=== PATIENT | female | born 1960 | race Caucasian/White ===

== ENCOUNTER 2018-05-26 11:21 | Emergency (ER) | payer MEDICARE, MEDICAID ==
--- NOTE | 2018-05-26 12:48 | ER Document Report ---
ED Medical Screen (RME) - General Chief Complaint: Chest Pain Stated Complaint: LEFT KNEE PAIN Time Seen by Provider: 05/26/18 12:44 Mode of Arrival: Ambulatory Information source: Patient Notes: This is a 57-year-old female that was transferred over by ambulance from [facility] with concerns of EKG changes. She does have a history of a known left bundle branch block and a history of CHF. She denies having any chest pain or shortness of breath. She does report that she has had indigestion over the past several weeks (since starting Wellbutrin). She states that normally she has not had any indigestion since having a hiatal hernia repair several years ago. She also has a history of rheumatoid arthritis and lupus and is on methotrexate and frequently on short courses of prednisone. Finally, she does have a history of recurrent left knee pain associated with standing up on the job a lot. She has had injections of the left knee. So the patient presented to [facility] with left knee inflammation as well as indigestion. [facility] performed an EKG and compared it to an EKG from May 08 and transferred the patient because of changes. The EKGs show a left bundle branch block which is old. There are changes in leads V2 and V5 and it is quite possibly that these 2 leads were switched when the EKG was performed on May 08. The EKGs (2 of them) performed at [facility] today is the same as the EKG performed in the ER today. Given the issues surrounding the possibility of the changes, patient will be evaluated further in the back and we will get a set of cardiac enzymes. TRAVEL OUTSIDE OF THE [place] IN LAST 30 DAYS: No - Related Data Allergies/Adverse Reactions: No Known Allergies Allergy (Unverified 05/26/18 12:27) Past Medical History Renal/ Medical History: Denies: Hx Peritoneal Dialysis Psychiatric Medical History: Reports: Hx Depression - Immunizations Hx Diphtheria, Pertussis, Tetanus Vaccination: No Physical Exam - Vital signs Vitals: Temp Pulse Resp BP Pulse Ox 98.4 F 73 18 150/98 H 98 05/26/18 11:36 05/26/18 11:36 05/26/18 11:36 05/26/18 11:36 05/26/18 11:36 Course - Vital Signs Vital signs: Temp Pulse Resp BP Pulse Ox 98.4 F 73 18 150/98 H 98 05/26/18 11:36 05/26/18 11:36 05/26/18 11:36 05/26/18 11:36 05/26/18 11:36
[2018-05-26 13:12] LABS: ABSOLUTE EOSINOPHILS # (AUTO) 0.1 10^3/uL (0.0-0.6); ABSOLUTE LYMPHOCYTES (AUTO) 1.3 10^3/uL (0.5-4.7); ABSOLUTE MONOCYTES (AUTO) 0.3 10^3/uL (0.1-1.4); ABSOLUTE NEUT (AUTO) 3.1 10^3/uL (1.7-8.2); EOSINOPHILS % (AUTO) 2.3 % (0-6); HEMATOCRIT 40.4 % (36.0-47.0); HEMOGLOBIN 13.9 g/dL (12.0-15.5); LYMPHOCYTES % (AUTO) 26.2 % (13-45); MEAN CORPUSCULAR HEMOGLOBIN 32.6 pg (27.0-33.4); MEAN CORPUSCULAR HGB CONC 34.5 g/dL (32.0-36.0); MEAN CORPUSCULAR VOLUME 95 fl (80-97); MONOCYTES % (AUTO) 7.2 % (3-13); PLATELET COUNT 320 10^3/uL (150-450); RED BLOOD COUNT 4.27 10^6/uL (3.72-5.28); RED CELL DISTRIBUTION WIDTH 13.7 % (11.5-14.0); SEGMENTED NEUTROPHILS % (AUTO) 63.3 % (42-78); TOTAL CELLS COUNTED % (AUTO) 100 %; WHITE BLOOD COUNT 4.9 10^3/uL (4.0-10.5)
--- NOTE | 2018-05-26 13:26 | RADIOLOGY REPORT (SQ) ---
EXAM DESCRIPTION: KNEE LEFT 3 VIEWS COMPLETED DATE/TIME: 05/26/2018 1:13 pm REASON FOR STUDY: left knee pain COMPARISON: None. NUMBER OF VIEWS: Three views. TECHNIQUE: AP, lateral, and sunrise patella radiographic images acquired of the left knee. LIMITATIONS: None. FINDINGS: MINERALIZATION: Juxta-articular osteopenia BONES: No acute fracture or dislocation. No worrisome bone lesions. JOINT: No effusion. SOFT TISSUES: No soft tissue swelling. No radio-opaque foreign body. OTHER: No other significant finding. IMPRESSION: NEGATIVE STUDY OF THE LEFT KNEE. NO RADIOGRAPHIC EVIDENCE OF ACUTE INJURY. TECHNICAL DOCUMENTATION: JOB ID: [id number] [employer]- All Rights Reserved Reading location - IP/workstation name: [email or web address]
[2018-05-26 13:38] LABS: ALANINE AMINOTRANSFERASE 26 U/L (9-52); ALBUMIN 4.3 g/dL (3.5-5.0); ALKALINE PHOSPHATASE 101 U/L (38-126); ANION GAP 11 (5-19); ASPARTATE AMINO TRANSFERASE 24 U/L (14-36); BILIRUBIN,DIRECT 0.2 mg/dL (0.0-0.4); BILIRUBIN,TOTAL 0.5 mg/dL (0.2-1.3); BLOOD UREA NITROGEN 15 mg/dL (7-20); CALCIUM 9.7 mg/dL (8.4-10.2); CARBON DIOXIDE 29 mmol/L (22-30); CHLORIDE 106 mmol/L (98-107); CREATINE KINASE 51 U/L (30-135); GLUCOSE 97 mg/dL (75-110); POTASSIUM 4.4 mmol/L (3.6-5.0); SODIUM 146.2 mmol/L (137-145); TOTAL PROTEIN 7.6 g/dL (6.3-8.2)
[2018-05-26 13:50] LABS: CREATINE KINASE MB 0.52 ng/mL (<4.55)
[2018-05-26 13:51] LABS: TROPONIN I < 0.012 ng/mL
--- NOTE | 2018-05-26 14:58 | ER Document Report ---
ED General - General Mode of Arrival: Ambulatory Information source: Patient TRAVEL OUTSIDE OF THE [place] IN LAST 30 DAYS: No <HARSH LOYD - Last Filed: 05/26/18 15:38> <DAQUAN SIMON - Last Filed: 05/26/18 21:50> - General Chief Complaint: Chest Pain Stated Complaint: LEFT KNEE PAIN Time Seen by Provider: 05/26/18 12:44 Notes: Patient is a 57 year old female with arthritis and lupus and a history of OR presents to the emergency department complaining of left knee pain and indigestion. Patient initially presented to [facility] with the same complaints and was sent to the emergency department for EKG changes. While in triage, another EKG was performed which looks the same as the 2 EKGs performed at [facility]. Patient states she is most concerned about her left knee pain. She states she works everyday where she is standing most of the day further stating her knee pain is exacerbated after working. She states she has attempted to wear a knee brace after she gets off of work and place gel inserts in her shoes to alleviate her pain. She reports taking Prednisone and Flexeril as needed and already having an orthopedist in relation to bilateral shoulder partial replacements. (HARSH LOYD) - Related Data Allergies/Adverse Reactions: No Known Allergies Allergy (Unverified 05/26/18 12:27) Past Medical History - General Information source: Patient - Social History Smoking Status: Former Smoker Cigarette use (# per day): No Chew tobacco use (# tins/day): No Smoking Education Provided: No Frequency of alcohol use: Occasional Family History: Reviewed & Not Pertinent Patient has suicidal ideation: No Patient has homicidal ideation: No Musculoskeletal Medical History: Reports Hx Arthritis Psychiatric Medical History: Reports: Hx Depression - Immunizations Hx Diphtheria, Pertussis, Tetanus Vaccination: No <HARSH LOYD - Last Filed: 05/26/18 15:38> Review of Systems - Review of Systems Constitutional: No symptoms reported EENT: No symptoms reported Cardiovascular: No symptoms reported Respiratory: No symptoms reported Gastrointestinal: See HPI Genitourinary: No symptoms reported Female Genitourinary: No symptoms reported Musculoskeletal: See HPI Skin: No symptoms reported Hematologic/Lymphatic: No symptoms reported Neurological/Psychological: No symptoms reported -: Yes All other systems reviewed and negative <HARSH LOYD - Last Filed: 05/26/18 15:38> Physical Exam <HARSH LOYD - Last Filed: 05/26/18 15:38> <DAQUAN SIMON - Last Filed: 05/26/18 21:50> - Vital signs Vitals: Temp Pulse Resp BP Pulse Ox 98.4 F 73 18 150/98 H 98 05/26/18 11:36 05/26/18 11:36 05/26/18 11:36 05/26/18 11:36 05/26/18 11:36 - Notes Notes: GENERAL: Alert, interacts well. No acute distress. HEAD: Normocephalic, atraumatic. EYES: Pupils equal, round, and reactive to light. Extraocular movements intact. ENT: Oral mucosa moist, tongue midline. NECK: Full range of motion. Supple. Trachea midline. LUNGS: Clear to auscultation bilaterally, no wheezes, rales, or rhonchi. No respiratory distress. HEART: Regular rate and rhythm. No murmurs, gallops, or rubs. ABDOMEN: Soft, non-tender. Overweight. Non-distended. Bowel sounds present in all 4 quadrants. EXTREMITIES: Moves all 4 extremities spontaneously. No edema, radial and dorsalis pedis pulses 2/4 bilaterally. No cyanosis. Negative ligamentous laxity of left knee. Small amount of prepatellar effusion of left knee. Negative anterior and posterior drawer test. No joint line tenderness. Minimal crepitus. NEUROLOGICAL: Alert and oriented x3. Normal speech. PSYCH: Normal affect, normal mood. SKIN: Warm, dry, normal turgor. No rashes or lesions noted. (HARSH LOYD) Course - Laboratory Result Diagrams: 05/26/18 12:52 05/26/18 12:52 <HARSH LOYD - Last Filed: 05/26/18 15:38> - Laboratory Result Diagrams: 05/26/18 12:52 05/26/18 12:52 <DAQUAN SIMON - Last Filed: 05/26/18 21:50> - Re-evaluation Re-evalutation: 05/26/18 15:01 CBC unremarkable, CMP shows slightly elevated sodium 146.2 otherwise unremarkable, cardiac enzymes negative and this chest pain which she describes as indigestion has been going on constantly for the past 4 weeks. Suspect this is truly indigestion rather than acute coronary syndrome given the fact that her cardiac enzymes are negative after 4 weeks of constant pain. Knee x-ray shows some osteopenia but no evidence of effusion or fracture. No severe osteoarthritis. On examination there is no evidence of ligamentous laxity or acute injury. Patient states that she bought a brace and is wearing it after work. Discussed with patient that she should be wearing it during work now after work. Patient also states that she is scheduled to work 7 days in a row but no she should only work 3 days in a row. Discussed with patient the importance of sticking to the work schedule that she requested rather than giving in and working 7 days a week. Also discussed the importance of supportive footwear and following up as an outpatient with orthopedic surgery for her chronic intermittent left knee pain. EKG is consistent with prior EKG. Left bundle branch block is old. Patient will be discharged home. (DAQUAN SIMON) - Vital Signs Vital signs: Temp Pulse Resp BP Pulse Ox 98.1 F 72 18 158/94 H 98 05/26/18 15:20 05/26/18 15:20 05/26/18 11:36 05/26/18 15:20 05/26/18 15:20 - Laboratory Laboratory results interpreted by me: 05/26/18 12:52 Sodium 146.2 H Est GFR (Non-Af Amer) 58 L - EKG Interpretation by Me Additional EKG results interpreted by me: 05/26/18 15:05 EKG shows sinus rhythm at a rate of 73, left bundle branch block, negative sgarbossa criteria per my interpretation. (DAQUAN SIMON) Discharge <HARSH LOYD - Last Filed: 05/26/18 15:38> <DAQUAN SIMON - Last Filed: 05/26/18 21:50> - Discharge Clinical Impression: Chronic pain of left knee, Chest pain with low risk of acute coronary syndrome Condition: Stable Disposition: HOME, SELF-CARE Additional Instructions: Chest Pain of Unclear Cause The exact cause of your chest pain isn't clear. Fortunately, there is no evidence of a dangerous medical condition. Further testing may be required to find the source of the pain. Most often, we find that this pain is coming from the chest wall -- the muscles or rib joints in the chest. But chest pain can come from the lung and lung lining, the esophagus, the heart valves or heart lining, and even the stomach or gallbladder. Rest. Eat lightly until the pain is gone. We may prescribe medicine for pain and inflammation. You should call the physician immediately if the pain radiates to the shoulder, jaw or arms; if you start to run a fever or develop a cough; or if you develop shortness of breath, or other new or alarming symptoms. Knee Exercise Program It's important to strengthen the muscles around the knee. This protects the injured area and stabilizes a knee that's been loosened by ligament injury. EARLY - Even when motion of the knee is painful (even when wearing a splint ), you can begin isometric "quads" exercises. While sitting, hold the knee out, and contract the muscles to stiffen it. It shouldn't be straightened all the way -- stiffen it in a slightly-bent position. Lift the leg and draw a "T" with your foot, up to 100 times. When it becomes easy, add a weight on your foot. LATE - When the doctor advises you, you can begin moving the knee against resistance. The front muscles (quadriceps) are most important. While sitting at a [employer], straighten the knee forcefully while pushing a weight up with your ankle. Start with five to 10 pounds. Do 10 to 20 repetitions, increasing the weight as tolerated. Don't use more weight than is comfortable! Over a few weeks, work up to 35 to 50 pounds. Athletes should try to reach 70 to 90 pounds. Please wear the splint whenever you are working or walking around. Please do not work more than 3 days a week. Please follow-up with an orthopedic surgeon as an outpatient. Forms: Restricted Release Referrals: SID MARTINEZ PA-C [Primary Care Provider] - Follow up as needed LINDSEY LEON MD [ACTIVE STAFF] - Follow up in 1 month Brigidoibdiane Attestation: 05/26/18 21:50 I personally performed the services described in the documentation, reviewed and edited the documentation which was dictated to the scribe in my presence, and it accurately records my words and actions. (DAQUAN SIMON) Scribe Documentation - Scribe Written by Arash:: Arash Chow, 05/26/2018 15:36 acting as scribe for :: Louis <HARSH LOYD - Last Filed: 05/26/18 15:38>
[2018-05-26 15:22] VITALS: BP 158/94
--- NOTE | 2018-05-26 17:15 | EKG REPORT ---
SEVERITY:- ABNORMAL ECG - SINUS RHYTHM LEFT BUNDLE BRANCH BLOCK : Confirmed by: Maynor Adrian MD 26-May-2018 17:14:19
== END 2018-05-26 15:21 | disposition home or self-care (01) ==
LOC: ER 11:21
DX: M25.562 Pain in left knee (principal); G89.29 Other chronic pain; M25.462 Effusion, left knee; M85.862 Other specified disorders of bone density and structure, left lower leg; M19.90 Unspecified osteoarthritis, unspecified site; R07.9 Chest pain, unspecified; I44.7 Left bundle-branch block, unspecified; I25.2 Old myocardial infarction; Z87.891 Personal history of nicotine dependence
CPT/HCPCS: 36415; 80053; 82550; 82553; 84484; 85025; 93005; 93010; 99285

== ENCOUNTER 2018-09-18 13:15 | Observation (INO) | payer MEDICARE, MEDICAID ==
--- NOTE | 2018-09-18 13:49 | ER Document Report ---
ED Medical Screen (RME) - General Chief Complaint: Vision Problem Stated Complaint: VOMITING/VISION PROBLEM Time Seen by Provider: 09/18/18 13:43 TRAVEL OUTSIDE OF THE [place] IN LAST 30 DAYS: No - HPI Notes: 09/18/18 13:47 Patient is a 58-year-old female that presents to the emergency department for chief complaint of double vision, dizziness and vomiting. Patient reports she has had double vision since 09/06/18. She was seen initially at [place] emergency room and was discharged home with Ortho follow-up. She saw the mass spec and was told her eyes appeared normal. She has had continued dizziness and feels like she is leaning to the right. Today she states she became diaphoretic and nauseated about 30 minutes prior to arrival. She denies any associated chest pain, numbness or weakness. She denies history of stroke in the past. ROS: GENERAL: Diaphoresis Neurologic: Dizziness, double vision CV: Denies chest pain PHYSICAL EXAMINATION: GENERAL: Well-appearing, well-nourished and in no acute distress. HEAD: Atraumatic, normocephalic. EYES: Pupils equal round extraocular movements intact, conjunctiva are normal. ENT: Nares patent NECK: Normal range of motion LUNGS: No respiratory distress Musculoskeletal: Normal range of motion NEUROLOGICAL: Normal speech, normal gait. PSYCH: Normal mood, normal affect. MDM: Patient seen and examined for rapid initial assessment. Vital signs reviewed. A comprehensive ED assessment and evaluation of the patient, analysis of test results and completion of the medical decision making process will be conducted by additional ED providers. - Related Data Allergies/Adverse Reactions: No Known Allergies Allergy (Verified 09/18/18 13:25) Past Medical History - Past Medical History Cardiac Medical History: Reports: Hx Congestive Heart Failure Renal/ Medical History: Denies: Hx Peritoneal Dialysis Musculoskeltal Medical History: Reports Hx Arthritis Psychiatric Medical History: Reports: Hx Depression Past Surgical History: Reports: Hx Cholecystectomy - Immunizations Hx Diphtheria, Pertussis, Tetanus Vaccination: No Physical Exam - Vital signs Vitals: Temp Pulse Resp BP Pulse Ox 97.6 F 73 16 136/87 H 94 09/18/18 13:33 09/18/18 13:33 09/18/18 13:33 09/18/18 13:33 09/18/18 13:33 Course - Vital Signs Vital signs: Temp Pulse Resp BP Pulse Ox 97.6 F 73 16 136/87 H 94 09/18/18 13:33 09/18/18 13:33 09/18/18 13:33 09/18/18 13:33 09/18/18 13:33 Doctor's Discharge - Discharge Referrals: SID MARTINEZ PA-C [Primary Care Provider] - Follow up as needed
[2018-09-18 14:43] LABS: ABSOLUTE BASOPHILS # (AUTO) 0.1 10^3/uL (0.0-0.2); ABSOLUTE EOSINOPHILS # (AUTO) 0.1 10^3/uL (0.0-0.6); ABSOLUTE LYMPHOCYTES (AUTO) 0.9 10^3/uL (0.5-4.7); ABSOLUTE MONOCYTES (AUTO) 0.3 10^3/uL (0.1-1.4); ABSOLUTE NEUT (AUTO) 3.9 10^3/uL (1.7-8.2); BASOPHILS % (AUTO) 1.2 % (0-2); EOSINOPHILS % (AUTO) 1.3 % (0-6); HEMATOCRIT 43.2 % (36.0-47.0); HEMOGLOBIN 14.7 g/dL (12.0-15.5); MEAN CORPUSCULAR HEMOGLOBIN 32.6 pg (27.0-33.4); MEAN CORPUSCULAR VOLUME 96 fl (80-97); MONOCYTES % (AUTO) 5.6 % (3-13); PLATELET COUNT 263 10^3/uL (150-450); RED CELL DISTRIBUTION WIDTH 13.5 % (11.5-14.0); SEGMENTED NEUTROPHILS % (AUTO) 74.9 % (42-78); TOTAL CELLS COUNTED % (AUTO) 100 %; WHITE BLOOD COUNT 5.2 10^3/uL (4.0-10.5)
[2018-09-18 14:46] LABS: INTERNATIONAL RATION (INR) 1.64
[2018-09-18 14:48] LABS: PARTIAL THROMBOPLASTIN TIME 71.1 SEC (23.5-35.8)
[2018-09-18 14:51] LABS: PROTHROMBIN TIME 20.2 SEC (11.4-15.4)
[2018-09-18 15:03] LABS: ALANINE AMINOTRANSFERASE 41 U/L (9-52); ALBUMIN 4.3 g/dL (3.5-5.0); ALKALINE PHOSPHATASE 103 U/L (38-126); ANION GAP 11 (5-19); ASPARTATE AMINO TRANSFERASE 36 U/L (14-36); BILIRUBIN,DIRECT 0.3 mg/dL (0.0-0.4); BILIRUBIN,TOTAL 0.6 mg/dL (0.2-1.3); BLOOD UREA NITROGEN 19 mg/dL (7-20); CALCIUM 9.6 mg/dL (8.4-10.2); CARBON DIOXIDE 27 mmol/L (22-30); CHLORIDE 106 mmol/L (98-107); GLUCOSE 107 mg/dL (75-110); POTASSIUM 4.3 mmol/L (3.6-5.0); SODIUM 143.5 mmol/L (137-145); TOTAL PROTEIN 7.6 g/dL (6.3-8.2)
--- NOTE | 2018-09-18 15:47 | RADIOLOGY REPORT (SQ) ---
EXAM DESCRIPTION: CHEST SINGLE VIEW COMPLETED DATE/TIME: 09/18/2018 3:36 pm REASON FOR STUDY: vision change, dizzieness COMPARISON: 05/21/2015 EXAM PARAMETERS: NUMBER OF VIEWS: One view. TECHNIQUE: Single frontal radiographic view of the chest acquired. RADIATION DOSE: NA LIMITATIONS: None. FINDINGS: LUNGS AND PLEURA: No opacities, masses or pneumothorax. No pleural effusion. MEDIASTINUM AND HILAR STRUCTURES: No masses. Contour normal. HEART AND VASCULAR STRUCTURES: Heart normal in size. Normal vasculature. BONES: No acute findings. HARDWARE: Bilateral shoulder arthroplasties. OTHER: No other significant finding. IMPRESSION: 1. No significant interval changes since the prior examination dated 05/21/2015. No acu te findings. TECHNICAL DOCUMENTATION: JOB ID: [id number] [employer]- All Rights Reserved Reading location - IP/workstation name: [email or web address]
--- NOTE | 2018-09-18 16:07 | RADIOLOGY REPORT (SQ) ---
EXAM DESCRIPTION: CT HEAD WITHOUT COMPLETED DATE/TIME: 09/18/2018 3:40 pm REASON FOR STUDY: vision change, dizzieness COMPARISON: None. TECHNIQUE: Axial images acquired through the brain without intravenous contrast. Images reviewed wi th bone, brain and subdural windows. Additional sagittal and coronal reconstructions were generated. Images stored on PACS. All CT scanners at this facility use dose modulation, iterative reconstruction, and/or weight based d osing when appropriate to reduce radiation dose to as low as reasonably achievable (ALARA). [facility]: Dose Right [facility]: CareDose [facility]: Dose Right [facility]: Teradose 4D [facility]: Isoflux RADIATION DOSE: CT Rad equipment meets quality standard of care and radiation dose reduction techniq ues were employed. CTDIvol: 53.2 mGy. DLP: 937 mGy-cm. mGy. LIMITATIONS: None. FINDINGS: VENTRICLES: Normal size and contour. CEREBRUM: No masses. No midline shift. No evidence for acute infarction. Fluffy increased attenuat ion within the left basal ganglia measuring approximately 4 mm. Normal weiner/white matter differentia tion. No areas of low density in the white matter. CEREBELLUM: No masses. No hemorrhage. No alteration of density. No evidence for acute infarction. EXTRAAXIAL SPACES: No fluid collections. No masses. ORBITS AND GLOBE: No intra- or extraconal masses. Normal contour of globe without masses. CALVARIUM: No fracture. PARANASAL SINUSES: No fluid or mucosal thickening. SOFT TISSUES: No mass or hematoma. OTHER: No other significant finding. IMPRESSION: Fluffy increased attenuation within the left basal ganglia, may represent asymmetric bas al ganglia mineralization versus small parenchymal hemorrhage with the former favored. No additional evidence of acute intracranial process. EVIDENCE OF ACUTE STROKE: NO. Case discussed with Dr. Joseph at the time of interpretation. COMMENT: Quality ID # [id number]: Final reports with documentation of one or more dose reduction techniques (e.g., Automated exposure control, adjustment of the mA and/or kV according to patient size, use of iterative reconstruction technique) TECHNICAL DOCUMENTATION: JOB ID: [id number] [employer]- All Rights Reserved Reading location - IP/workstation name: [email or web address] BY [facility]
--- NOTE | 2018-09-18 16:15 | ER Document Report ---
ED General - General Chief Complaint: Vision Problem Stated Complaint: VOMITING/VISION PROBLEM Time Seen by Provider: 09/18/18 13:43 Notes: This is a 58-year-old female patient brings emergency department today with chief complaint of dizziness, double vision, headache, nausea and feeling like she is about to pass out. Initially the symptoms began at approximately 06 September. [facility] [place] and had imaging studies performed which were reportedly normal. Followed up with eye doctor. They think maybe she has a weakness of 1 of her eye muscles. Today the blurred vision and double vision began to get worse. She felt like she was going to pass out. Began having some nausea and vomiting. Patient is on Xarelto. Has a mild headache at this time located on the right side. No other major issues reported. No abdominal pain. No weakness. TRAVEL OUTSIDE OF THE [place] IN LAST 30 DAYS: No - HPI Onset: Just prior to arrival Onset/Duration: Gradual, Constant Quality of pain: Achy Severity: Moderate Pain Level: 1 Associated symptoms: Nausea, Vomiting - Related Data Allergies/Adverse Reactions: No Known Allergies Allergy (Verified 09/18/18 13:25) Past Medical History - General Information source: Patient - Social History Smoking Status: Former Smoker Frequency of alcohol use: None Drug Abuse: None Lives with: Alone Family History: Reviewed & Not Pertinent Patient has suicidal ideation: No Patient has homicidal ideation: No - Past Medical History Cardiac Medical History: Reports: Hx Congestive Heart Failure Renal/ Medical History: Denies: Hx Peritoneal Dialysis Musculoskeletal Medical History: Reports Hx Arthritis Psychiatric Medical History: Reports: Hx Depression Past Surgical History: Reports: Hx Cholecystectomy - Immunizations Hx Diphtheria, Pertussis, Tetanus Vaccination: No Review of Systems - Review of Systems Notes: Constitutional: denies: Chills, Diaphoresis, Fever, Malaise, Weakness EENT: denies: Eye discharge, Nose congestion, Nose discharge, Throat swelling, Mouth pain. Complaining of blurred vision double vision Cardiovascular: denies: Palpitations, Heart racing, Orthopnea, Dyspnea, Chest pain Respiratory: denies: Cough, Hurts to breathe, Wheezing, Shortness of breath Gastrointestinal: denies: Abdominal pain, Diarrhea, Black stools, bright red blood in stool. Nausea with vomiting today Genitourinary: denies: Burning, Dysuria, Discharge, Frequency, Flank pain, Hematuria Musculoskeletal: denies: Joint pain, Joint swelling, Muscle pain, Muscle stiffness, back pain Hematologic/Lymphatic: denies: Anemia, Easy bleeding, Easy bruising, Blood clots Neurological/Psychological: denies: Confusion, Dementia, Depression, Loss of consciousness. Mild headache Skin: No lesions, no masses, no skin breakdown, no abscesses Physical Exam - Vital signs Vitals: Temp Pulse Resp BP Pulse Ox 97.6 F 73 16 136/87 H 94 09/18/18 13:33 09/18/18 13:33 09/18/18 13:33 09/18/18 13:33 09/18/18 13:33 Interpretation: Normal - General General appearance: Appears well, Alert - HEENT Head: Normocephalic, Atraumatic Eyes: Normal Pupils: PERRL - Respiratory Respiratory status: No respiratory distress Chest status: Nontender Breath sounds: Normal Chest palpation: Normal - Cardiovascular Rhythm: Regular Heart sounds: Normal auscultation Murmur: No - Abdominal Inspection: Normal Distension: No distension Bowel sounds: Normal Tenderness: Nontender Organomegaly: No organomegaly - Back Back: Normal, Nontender - Extremities General upper extremity: Normal inspection, Nontender, Normal color, Normal ROM , Normal temperature General lower extremity: Normal inspection, Nontender, Normal color, Normal ROM , Normal temperature, Normal weight bearing. No: Amparo's sign - Neurological Neuro grossly intact: Yes Cognition: Normal Orientation: AAOx4 [place] Coma Scale Eye Opening: Spontaneous Rashid Coma Scale Verbal: Oriented [place] Coma Scale Motor: Obeys Commands Rashid Coma Scale Total: 15 Speech: Normal Motor strength normal: LUE, RUE, LLE, RLE Sensory: Normal - Psychological Associated symptoms: Normal affect, Normal mood - Skin Skin Temperature: Warm Skin Moisture: Dry Skin Color: Normal Course - Re-evaluation Re-evalutation: 09/18/18 17:53 Laboratory 09/18/18 09/18/18 09/18/18 14:30 14:30 14:30 WBC 5.2 RBC 4.50 Hgb 14.7 Hct 43.2 MCV 96 MCH 32.6 MCHC 34.0 RDW 13.5 Plt Count 263 Seg Neutrophils % 74.9 Lymphocytes % 17.0 Monocytes % 5.6 Eosinophils % 1.3 Basophils % 1.2 Absolute Neutrophils 3.9 Absolute Lymphocytes 0.9 Absolute Monocytes 0.3 Absolute Eosinophils 0.1 Absolute Basophils 0.1 PT 20.2 H INR 1.64 APTT 71.1 H Sodium 143.5 Potassium 4.3 Chloride 106 Carbon Dioxide 27 Anion Gap 11 BUN 19 Creatinine 1.06 Est GFR ( Amer) > 60 Est GFR (Non-Af Amer) 53 L Glucose 107 POC Glucose Calcium 9.6 Total Bilirubin 0.6 Direct Bilirubin 0.3 Neonat Total Bilirubin Not Reportable Neonat Direct Bilirubin Not Reportable Neonat Indirect Bili Not Reportable AST 36 ALT 41 Alkaline Phosphatase 103 Troponin I Total Protein 7.6 Albumin 4.3 09/18/18 09/18/18 14:30 14:30 WBC RBC Hgb Hct MCV MCH MCHC RDW Plt Count Seg Neutrophils % Lymphocytes % Monocytes % Eosinophils % Basophils % Absolute Neutrophils Absolute Lymphocytes Absolute Monocytes Absolute Eosinophils Absolute Basophils PT INR APTT Sodium Potassium Chloride Carbon Dioxide Anion Gap BUN Creatinine Est GFR ( Amer) Est GFR (Non-Af Amer) Glucose POC Glucose 110 Calcium Total Bilirubin Direct Bilirubin Neonat Total Bilirubin Neonat Direct Bilirubin Neonat Indirect Bili AST ALT Alkaline Phosphatase Troponin I < 0.012 Total Protein Albumin Chest X-Ray 09/18/18 13:47 IMPRESSION: 1. No significant interval changes since the prior examination dated 05/21/2015. No acute findings. Head CT 09/18/18 13:47 IMPRESSION: Fluffy increased attenuation within the left basal ganglia, may represent asymmetric basal ganglia mineralization versus small parenchymal hemorrhage with the former favored. No additional evidence of acute intracranial process. EVIDENCE OF ACUTE STROKE: NO. Case discussed with Dr. Joseph at the time of interpretation. I was able [facility] This finding that was seen today as a same finding that was seen on 06 September so unlikely this represents a bleed. At this time patient is still having the blurred vision with the nausea. I feel uncomfortable discharging her at this time. Patient needs an MRI possible cardiac workup as well. Will consult with hospitalist at this time for possible admit. - Vital Signs Vital signs: Temp Pulse Resp BP Pulse Ox 97.6 F 76 19 115/87 H 94 09/18/18 13:33 09/18/18 18:00 09/18/18 18:11 09/18/18 18:11 09/18/18 18:11 - Laboratory Result Diagrams: 09/18/18 14:30 09/18/18 14:30 Laboratory results interpreted by me: 09/18/18 09/18/18 14:30 14:30 PT 20.2 H APTT 71.1 H Est GFR (Non-Af Amer) 53 L - EKG Interpretation by Me EKG shows normal: Sinus rhythm [place]/QRS: LBBB Discharge - Discharge Clinical Impression: Diplopia Vomiting Qualifiers: Vomiting type: unspecified Vomiting Intractability: non-intractable Nausea presence: with nausea Qualified Code(s): R11.2 - Nausea with vomiting, unspecified Condition: Good Disposition: ADMITTED OBSERVATION Admitting Provider: Hospitalist - [facility] Unit Admitted: Telemetry Referrals: SID MARTINEZ PA-C [Primary Care Provider] - Follow up as needed
[2018-09-18] MEDS ORDERED: ACETAMINOPHEN 325 MG TABLET PO PRN (18:24)
[2018-09-18] MEDS ORDERED: ONDANSETRON HCL INJ/PF 4 MG/2 ML SDV IV PRN (18:24)
[2018-09-18] MEDS ORDERED: CYCLOBENZAPRINE HCL 10 MG TABLET PO PRN (18:31)
[2018-09-18] MEDS ORDERED: DIAZEPAM 5 MG TABLET PO PRN (18:31)
--- NOTE | 2018-09-18 18:53 | PDOC H&P ---
History of Present Illness Admission Date/PCP: 09/18/18 18:31 SID MARTINEZ PA-C Patient complains of: Blurred vision and dizziness History of Present Illness: BLADIMIR DANIEL is a 58 year old female with history of lupus, pulmonary embolism multiple times, left lower leg DVT, left bundle branch block, congestive heart failure, anxiety and depression, came to the emergency room with complaints of double vision and ringing of the ears since of last . She went to [facility] in the emergency room there CT scan was done and as per the patient is shows no abnormalities and was discharged she is continued to have these problems. The double vision ringing of the ears persisted now she had associated symptoms like diaphoresis nausea and vomitings and she has difficulty in walking she is leaning towards the right side and walking also complained of dizziness numbness and tingling in the upper lips.. Initially thought about calling EMS but she drove herself to the ER today. Emergency room CT head without contrast was done the radiologist impression is calcification/ganglial bleed,. The ER physician talked to the team and the cart at [facility] to compare the previous CT scan that was done on last month the impression was no changes. Patient is also complaining of double vision looking up onto the sides, call was made to the can line operator Dr. LONGORIA and he is going to see the patient tomorrow. MRI of the brain without contrast was placed in the ER hopefully will be done tonight Past Medical History Cardiac Medical History: Reports: Congestive Heart Failure Pulmonary Medical History: Reports: Other - Pulmonary embolism. Musculoskeltal Medical History: Reports: Arthritis Psychiatric Medical History: Reports: Depression, General Anxiety Disorder Hematology: Reports: Other - Patient is complaining of left lower leg DVTs history and pulmonarARY EMBO Past Surgical History Past Surgical History: Reports: Cholecystectomy, Other - Bilateral shoulder replacement. Social History Lives with: Alone Smoking Status: Former Smoker Frequency of Alcohol Use: Rare Hx Recreational Drug Use: No Hx Prescription Drug Abuse: No Family History Family History: Reviewed & Not Pertinent, Other - Family history of diabetes. Parental Family History Reviewed: Yes - Family history of diabetes. Children Family History Reviewed: Yes Sibling(s) Family History Reviewed.: Yes Medication/Allergy Home Medications: Atorvastatin Calcium 80 mg PO QHS 05/21/15 Carvedilol [Coreg] 1 tab PO Q12 05/21/15 Citalopram Hydrobromide [Celexa] 1 tab PO DAILY 05/21/15 Cyanocobalamin (Vitamin B-12) [Vitamin B-12 1000 mcg Tablet] 1 tab PO DAILY Cyclobenzaprine HCl [Flexeril 10 mg Tablet] 10 mg PO TIDP PRN 05/21/15 Diazepam 5 mg PO Q6H PRN 05/21/15 Folic Acid 1 mg PO DAILY 05/21/15 Methotrexate Sodium [Methotrexate] 20 mg PO ASDIR PRN 05/21/15 Rivaroxaban [Xarelto 10 mg Tablet] 20 mg PO QHS 05/21/15 Bupropion HCl [Bupropion Xl] 150 mg PO DAILY 09/18/18 Hydroxyzine Pamoate [Vistaril 25 mg Capsule] 25 mg PO DAILY 09/18/18 Sertraline HCl [Zoloft 50 mg Tablet] 50 mg PO DAILY 09/18/18 Topiramate [Trokendi Xr] 25 mg PO DAILY 09/18/18 Allergies/Adverse Reactions: No Known Allergies Allergy (Verified 09/18/18 13:25) Review of Systems Constitutional: PRESENT: headache(s). ABSENT: fever(s) Eyes: PRESENT: visual disturbances Ears: PRESENT: hearing changes, other - Ringing in the ears. Cardiovascular: ABSENT: chest pain, dyspnea on exertion Respiratory: ABSENT: dyspnea Gastrointestinal: ABSENT: abdominal pain, constipation, diarrhea, hematemesis, hematochezia, nausea, vomiting Genitourinary: ABSENT: dysuria, hematuria Musculoskeletal: PRESENT: muscle weakness Neurological: PRESENT: other - Complaining of numbness and tingling in the upper lips, difficulty in ambulation leaning towards the right side. Psychiatric: ABSENT: anxiety, depression, homidical ideation, suicidal ideation Physical Exam Vital Signs: Temp Pulse Resp BP Pulse Ox 97.6 F 76 19 115/87 H 94 09/18/18 13:33 09/18/18 18:00 09/18/18 18:11 09/18/18 18:11 09/18/18 18:11 General appearance: PRESENT: no acute distress Head exam: PRESENT: atraumatic Eye exam: PRESENT: PERRLA Mouth exam: PRESENT: moist, tongue midline Neck exam: ABSENT: carotid bruit, JVD, lymphadenopathy, thyromegaly Respiratory exam: PRESENT: clear to auscultation bryce. ABSENT: rales, rhonchi, wheezes Cardiovascular exam: PRESENT: RRR. ABSENT: diastolic murmur, rubs, systolic murmur Pulses: PRESENT: normal dorsalis pedis pul GI/Abdominal exam: PRESENT: normal bowel sounds, soft. ABSENT: distended, guarding, mass, organolmegaly, rebound, tenderness Extremities exam: PRESENT: full ROM. ABSENT: calf tenderness, clubbing, pedal edema Neurological exam: PRESENT: alert, awake, oriented to person, oriented to place , oriented to time, oriented to situation, CN II-XII grossly intact. ABSENT: motor sensory deficit Psychiatric exam: PRESENT: appropriate affect, normal mood. ABSENT: homicidal ideation, suicidal ideation Results Impressions: Chest X-Ray 09/18/18 13:47 IMPRESSION: 1. No significant interval changes since the prior examination dated 05/21/2015. No acute findings. Head CT 09/18/18 13:47 IMPRESSION: Fluffy increased attenuation within the left basal ganglia, may represent asymmetric basal ganglia mineralization versus small parenchymal hemorrhage with the former favored. No additional evidence of acute intracranial process. EVIDENCE OF ACUTE STROKE: NO. Case discussed with Dr. Joseph at the time of interpretation. Assessment & Plan - Diagnosis (1) Diplopia Is this a current diagnosis for this admission?: Yes Plan: 09/18/2018 patient came in with complaints of diplopia for the last 2 weeks. Patient given the history of lupus. Ophthalmology consult was placed. CT head shows calcification versus possible. In the ganglia. MRI of the brain without contrast was requested. I am going to also order for carotid Doppler, echocardiogram. Ophthalmology consult was placed. Fall precautions were requested. Patient advised to be bed rest. It is going to be admitted into telemetry under observation. Neurochecks every 4 hours for the next 24 hours requested. Mechanical prophylaxis with SCDs was placed patient is already on Xarelto. He is going to do the cardiac workup. Swallowing evaluation is requested as part of stroke protocol. (2) Lupus Qualifiers: Systemic lupus erythematosus organ involvement: unspecified Is this a current diagnosis for this admission?: Yes Plan: 09/18/2018 patient is giving history of lupus patient states he is taking methotrexate at home. We will continue the home medications. (3) Personal history of pulmonary embolism Is this a current diagnosis for this admission?: Yes Plan: 09/18/2018 patient is given the history of pulmonary embolism. Also given the history of left lower leg deep DVT she is on Xareltto. We will continue Xareltto during the hospital stay. (4) History of left bundle branch block (LBBB) Is this a current diagnosis for this admission?: Yes Plan: 09/18/2018 patient has history of lead left bundle branch block. No chest pains at the time of examination. Echocardiogram was requested. (5) CHF (congestive heart failure) Is this a current diagnosis for this admission?: Yes Plan: 09/18/2018 patient is given the history of congestive heart failure, on examination there is no evidence of fluid overload chest was clear there is no pedal edema. Echocardiogram is pending. (6) Depression Is this a current diagnosis for this admission?: Yes Plan: 09/18/2018-patient is given the history of anxiety and depression. She is on multiple medications for this problems at home. She is on diazepam 5 mg p.o. every 6 hours as needed, she is on Topamax, sertraline, citalopram. I started her back on diazepam Topamax and sertraline at this time. - Time Time Spent: 50 to 70 Minutes Medications reviewed and adjusted accordingly: Yes Anticipated discharge: Home
--- NOTE | 2018-09-18 20:11 | RADIOLOGY REPORT (SQ) ---
EXAM DESCRIPTION: MRI HEAD WITHOUT COMPLETED DATE/TIME: 09/18/2018 7:43 pm REASON FOR STUDY: diplopia I50.32 CHRONIC DIASTOLIC (CONGESTIVE) HEART FAILURE COMPARISON: None. TECHNIQUE: Multiplanar imaging includes non-contrasted T1, T2, FLAIR, and diffusion with ADC map seq uences. Images stored on PACS. LIMITATIONS: None. FINDINGS: ANATOMY: No anomalies. Normal vascular flow voids. Pituitary fossa normal. CSF SPACES: Normal in size and contour. No hemorrhage. CEREBRUM: Sulci and gyri normal in size and contour. Normal white matter signal on FLAIR imaging. No evidence of hemorrhage, mass, or extraaxial fluid collection. POSTERIOR FOSSA: No signal alteration. No hemorrhage. No edema, masses or mass effect. Internal madeline tory canals, cerebello-pontine angles, mastoids normal. DIFFUSION IMAGING: Negative for acute or sub-acute infarction. ORBITS: No masses. Globes normal. PARANASAL SINUSES: No fluid levels. Mucosa normal. OTHER: T2 weighted GRE sequences demonstrate decreased signal in the basal ganglia bilaterally left g reater than right. This is consistent with calcification. IMPRESSION: NORMAL MRI OF THE BRAIN WITHOUT INTRAVENOUS GADOLINIUM CONTRAST. EVIDENCE OF ACUTE STROKE: NO. TECHNICAL DOCUMENTATION: JOB ID: [id number] [employer]- All Rights Reserved Reading location - IP/workstation name: [email or web address]
[2018-09-18 20:50] LABS: CREATINE KINASE MB 0.34 ng/mL (<4.55)
[2018-09-18 20:52] LABS: TROPONIN I < 0.012 ng/mL
[2018-09-18] MEDS: CARVEDILOL 6.25 MG TABLET PO SCH (21:17)
[2018-09-18] MEDS: FAMOTIDINE 20 MG TABLET PO SCH (21:17)
[2018-09-18] MEDS ORDERED: ATORVASTATIN CALCIUM 80 MG TABLET PO SCH (22:00)
[2018-09-18] MEDS ORDERED: RIVAROXABAN 10 MG TABLET PO SCH (22:00)
--- NOTE | 2018-09-18 23:37 | EKG REPORT ---
SEVERITY:- ABNORMAL ECG - SINUS RHYTHM LEFT BUNDLE BRANCH BLOCK : Confirmed by: Arabella Daigle MD 18-Sep-2018 23:36:34
[2018-09-19 02:50] LABS: ABSOLUTE EOSINOPHILS # (AUTO) 0.1 10^3/uL (0.0-0.6); ABSOLUTE LYMPHOCYTES (AUTO) 1.4 10^3/uL (0.5-4.7); ABSOLUTE MONOCYTES (AUTO) 0.4 10^3/uL (0.1-1.4); ABSOLUTE NEUT (AUTO) 2.4 10^3/uL (1.7-8.2); EOSINOPHILS % (AUTO) 1.5 % (0-6); HEMOGLOBIN 12.9 g/dL (12.0-15.5); MEAN CORPUSCULAR HEMOGLOBIN 32.2 pg (27.0-33.4); MEAN CORPUSCULAR HGB CONC 33.8 g/dL (32.0-36.0); MEAN CORPUSCULAR VOLUME 95 fl (80-97); MONOCYTES % (AUTO) 9.7 % (3-13); PLATELET COUNT 231 10^3/uL (150-450); RED BLOOD COUNT 3.99 10^6/uL (3.72-5.28); SEGMENTED NEUTROPHILS % (AUTO) 55.8 % (42-78); TOTAL CELLS COUNTED % (AUTO) 100 %; WHITE BLOOD COUNT 4.4 10^3/uL (4.0-10.5)
[2018-09-19 03:09] LABS: ALANINE AMINOTRANSFERASE 36 U/L (9-52); ALBUMIN 3.4 g/dL (3.5-5.0); ALKALINE PHOSPHATASE 88 U/L (38-126); ANION GAP 6 (5-19); ASPARTATE AMINO TRANSFERASE 31 U/L (14-36); BILIRUBIN,DIRECT 0.2 mg/dL (0.0-0.4); BILIRUBIN,TOTAL 0.5 mg/dL (0.2-1.3); BLOOD UREA NITROGEN 18 mg/dL (7-20); CALCIUM 8.8 mg/dL (8.4-10.2); CARBON DIOXIDE 28 mmol/L (22-30); CHLORIDE 109 mmol/L (98-107); CHOLESTEROL 129.54 mg/dL (0-200); CREATINE KINASE 32 U/L (30-135); GLUCOSE 95 mg/dL (75-110); POTASSIUM 3.7 mmol/L (3.6-5.0); SODIUM 143.4 mmol/L (137-145); TOTAL PROTEIN 6.4 g/dL (6.3-8.2); TRIGLYCERIDES 76 mg/dL (<150)
[2018-09-19 03:20] LABS: CREATINE KINASE MB 0.26 ng/mL (<4.55); DIRECT LDL 73 mg/dL (<100)
[2018-09-19 03:28] LABS: TROPONIN I < 0.012 ng/mL
[2018-09-19] MEDS: FAMOTIDINE 20 MG TABLET PO SCH (09:08)
[2018-09-19] MEDS: CARVEDILOL 6.25 MG TABLET PO SCH (09:08)
[2018-09-19] MEDS: SERTRALINE HCL 50 MG TABLET PO SCH ×2 (09:09→09:14)
[2018-09-19 09:50] LABS: CREATINE KINASE MB 0.25 ng/mL (<4.55)
[2018-09-19 09:56] LABS: TROPONIN I < 0.012 ng/mL
[2018-09-19] MEDS ORDERED: CYANOCOBALAMIN (VITAMIN B-12) 1,000 MCG TABLET PO SCH (10:00)
[2018-09-19] MEDS ORDERED: CITALOPRAM HYDROBROMIDE 20 MG TABLET PO SCH (10:00)
[2018-09-19] MEDS ORDERED: FOLIC ACID 1 MG TABLET PO SCH (10:00)
[2018-09-19] MEDS ORDERED: (PENDING PHARMACY ID) (Citalopram Hydrobromide [Celexa] 1 TAB) PO SCH (10:00)
[2018-09-19] MEDS ORDERED: TOPIRAMATE 25 MG PO SCH (10:00)
[2018-09-19] MEDS ORDERED: HYDROXYZINE PAMOATE 25 MG CAPSULE PO SCH (10:00)
[2018-09-19] MEDS ORDERED: RIVAROXABAN 10 MG TABLET PO SCH (11:00)
[2018-09-19 14:47] VITALS: BP 118/69
--- NOTE | 2018-09-19 16:52 | PDOC DISCHARGE SUMMARY ---
General - Admit/Disc Date/PCP Admission Date/Primary Care Provider: 09/18/18 18:31 SID MARTINEZ PA-C Discharge Date: 09/19/18 - Discharge Diagnosis (1) Diplopia Is this a current diagnosis for this admission?: Yes Summary: 09/18/2018 patient came in with complaints of diplopia for the last 2 weeks. Patient given the history of lupus. Ophthalmology consult was placed. CT head shows calcification versus possible. In the ganglia. MRI of the brain without contrast was requested. I am going to also order for carotid Doppler, echocardiogram. Ophthalmology consult was placed. Fall precautions were requested. Patient advised to be bed rest. It is going to be admitted into telemetry under observation. Neurochecks every 4 hours for the next 24 hours requested. Mechanical prophylaxis with SCDs was placed patient is already on Xarelto. He is going to do the cardiac workup. Swallowing evaluation is requested as part of stroke protocol. 09/19/2018 88-year-old female with history of lupus came to the emergency room with complaints of double vision associated with dizziness. She was in [facility] [address] scan was done at that time which was negative for stroke she was discharged from the she is came here with worsening symptoms when she is also complaining of difficulty in ambulation and balance. The CT head here done there is a question about calcification versus bleeding in the ganglia. We did a MRI without contrast last night and it was negative for stroke and confirmed calcification findings in the CT scan. [employer] Dr. Leonard came in to see the patient today according to him no problems with vision and his recommendation for her to see the clinical program manager as an outpatient. Carotid Doppler was requested I did not see any report. (2) Lupus Is this a current diagnosis for this admission?: Yes Summary: 09/18/2018 patient is giving history of lupus patient states he is taking methotrexate at home. We will continue the home medications. 09/19/2018 patient is given the history of lupus she is following up with a storm chaser as an outpatient. Flareups of lupus noticed during the hospital stay. She was advised to follow-up with rheumatology as an outpatient. (3) Personal history of pulmonary embolism Is this a current diagnosis for this admission?: Yes Summary: 09/18/2018 patient is given the history of pulmonary embolism. Also given the history of left lower leg deep DVT she is on Xareltto. We will continue Xareltto during the hospital stay. 09/19/2018 patient has history of multiple PEs and left lower leg DVT. She is on Xarelto at home. Advised her to continue Xarelto as a home medication when she was discharged. (4) History of left bundle branch block (LBBB) Is this a current diagnosis for this admission?: Yes Summary: 09/18/2018 patient has history of lead left bundle branch block. No chest pains at the time of examination. Echocardiogram was requested. 09/19/2018 patient denies any complaints of chest pain during the hospital course. Stable left bundle branch block in the EKG. echocardiogram was requested. I did not see whether it was done or not. (5) CHF (congestive heart failure) Is this a current diagnosis for this admission?: Yes Summary: 09/18/2018 patient is given the history of congestive heart failure, on examination there is no evidence of fluid overload chest was clear there is no pedal edema. Echocardiogram is pending. 09/19/2018 patient is given the history of congestive heart failure. On examination patient is not in fluid overload. Chest was clear. No pedal edema. (6) Depression Is this a current diagnosis for this admission?: Yes Summary: 09/18/2018-patient is given the history of anxiety and depression. She is on multiple medications for this problems at home. She is on diazepam 5 mg p.o. every 6 hours as needed, she is on Topamax, sertraline, citalopram. I started her back on diazepam Topamax and sertraline at this time. 09/19/2018 patient has history of anxiety depression. During the hospital stay patient denied any complaints of anxiety or depression. Advised her to continue her home medications as an outpatient. - Additional Information Resuscitation Status: Full Code Discharge Activity: Activity As Tolerated Home Medications: Atorvastatin Calcium [Lipitor 40 mg Tablet] 40 mg PO QHS 09/19/18 Bupropion HCl [Bupropion Xl] 150 mg PO QAM 09/19/18 Carvedilol [Coreg 6.25 mg Tablet] 6.25 mg PO Q12 09/19/18 Citalopram Hydrobromide [Celexa 40 mg Tablet] 40 mg PO QAM 09/19/18 Cyanocobalamin (Vitamin B-12) [Vitamin B-12 1000 mcg Tablet] 1,000 mcg PO DAILY tablet 09/19/18 Cyclobenzaprine HCl [Flexeril 10 mg Tablet] 10 mg PO Q8HP PRN 09/19/18 Cyclobenzaprine HCl [Flexeril 10 mg Tablet] 10 mg PO Q8HP PRN tablet 09/19/18 Diazepam [Valium 5 mg Tablet] 5 mg PO Q6HP PRN tablet 09/19/18 Famotidine [Pepcid 20 mg Tablet] 20 mg PO Q12 tablet 09/19/18 Folic Acid [Folvite 1 mg Tablet] 1 mg PO [id number] 09/19/18 Hydroxychloroquine Sulfate [Plaquenil 200 mg Tablet] 400 mg PO QPM 09/19/18 Hydroxyzine Pamoate [Vistaril 25 mg Capsule] 25 mg PO DAILY capsule 09/19/18 Methotrexate Sodium [Rheumatrex 2.5 mg Tablet] 20 mg PO MURPHY 09/19/18 Methotrexate Sodium [Rheumatrex 2.5 mg Tablet] 20 mg PO Tu@1000 tablet Rivaroxaban [Xarelto 10 mg Tablet] 20 mg PO QAM tablet 09/19/18 Rivaroxaban [Xarelto] 20 mg PO QAM 09/19/18 Sertraline HCl [Zoloft 50 mg Tablet] 50 mg PO DAILY tablet 09/19/18 Topiramate [Trokendi Xr] 25 mg PO .DAILY 09/19/18 History of Present Illness History of Present Illness: BLADIMIR DANIEL is a 58 year old female with history of lupus, pulmonary embolism multiple times, left lower leg DVT, left bundle branch block, congestive heart failure, anxiety and depression, came to the emergency room with complaints of double vision and ringing of the ears since of last month. She went to [facility] in the emergency room there CT scan was done and as per the patient is shows no abnormalities and was discharged she is continued to have these problems. The double vision ringing of the ears persisted now she had associated symptoms like diaphoresis nausea and vomitings and she has difficulty in walking she is leaning towards the right side and walking also complained of dizziness numbness and tingling in the upper lips.. Initially thought about calling EMS but she drove herself to the ER today. Emergency room CT head without contrast was done the radiologist impression is calcification/ganglial bleed,. The ER physician talked to the team and the cart at hospital to compare the previous CT scan that was done on of last month the impression was no changes. Patient is also complaining of double vision looking up onto the sides, call was made to the procedures tech Dr. LEONARD and he is going to see the patient tomorrow. MRI of the brain without contrast was placed in the ER hopefully will be done tonight Hospital Course Hospital Course: 58-year-old female with history of lupus admitted with double vision difficulty in ambulation and wobbliness. Ophthalmology consult was done. And Dr. Lord did not see any visual problems. His recommendation is for her to follow-up with neurologist as an outpatient. CT head and also MRI of the brain was done. Negative for acute strokes. No acute events during the hospital course. Patient was advised to follow-up with neurology as an outpatient. Physical Exam Vital Signs: Temp Pulse Resp BP Pulse Ox 97.7 F 62 16 118/69 97 09/19/18 13:44 09/19/18 13:44 09/19/18 13:44 09/19/18 11:40 09/19/18 13:44 Intake & Output 09/18/18 09/19/18 09/20/18 06:59 06:59 06:59 Weight 108.5 kg General appearance: PRESENT: no acute distress Head exam: PRESENT: atraumatic Eye exam: PRESENT: PERRLA Neck exam: ABSENT: carotid bruit, JVD, lymphadenopathy, thyromegaly Respiratory exam: PRESENT: clear to auscultation bryce. ABSENT: rales, rhonchi, wheezes Cardiovascular exam: PRESENT: RRR. ABSENT: diastolic murmur, rubs, systolic murmur GI/Abdominal exam: PRESENT: normal bowel sounds, soft. ABSENT: distended, guarding, mass, organolmegaly, rebound, tenderness Extremities exam: PRESENT: full ROM. ABSENT: calf tenderness, clubbing, pedal edema Neurological exam: PRESENT: alert, awake, oriented to person, oriented to place , oriented to time, oriented to situation, CN II-XII grossly intact. ABSENT: motor sensory deficit Psychiatric exam: PRESENT: appropriate affect, normal mood. ABSENT: homicidal ideation, suicidal ideation Results Laboratory Results: 09/19/18 02:36 09/19/18 02:36 09/19/18 09/19/18 09/19/18 02:36 02:36 02:36 WBC 4.4 RBC 3.99 Hgb 12.9 Hct 38.0 MCV 95 MCH 32.2 MCHC 33.8 RDW 13.0 Plt Count 231 Seg Neutrophils % 55.8 Lymphocytes % 32.0 Monocytes % 9.7 Eosinophils % 1.5 Basophils % 1.0 Absolute Neutrophils 2.4 Absolute Lymphocytes 1.4 Absolute Monocytes 0.4 Absolute Eosinophils 0.1 Absolute Basophils 0.0 Sodium 143.4 Potassium 3.7 Chloride 109 H Carbon Dioxide 28 Anion Gap 6 BUN 18 Creatinine 1.05 Est GFR ( Amer) > 60 Est GFR (Non-Af Amer) 54 L Glucose 95 Calcium 8.8 Magnesium 2.2 Total Bilirubin 0.5 AST 31 ALT 36 Alkaline Phosphatase 88 Total Protein 6.4 Albumin 3.4 L Triglycerides 76 Cholesterol 129.54 LDL Cholesterol Direct 73 VLDL Cholesterol 15.0 HDL Cholesterol 48 TSH 0.36 L 09/18/18 09/18/18 09/19/18 20:02 20:02 02:36 Creatine Kinase 36 CK-MB (CK-2) 0.34 0.26 Troponin I < 0.012 < 0.012 09/19/18 09/19/18 09/19/18 02:36 08:40 08:40 Creatine Kinase 32 35 CK-MB (CK-2) 0.25 Troponin I < 0.012 Impressions: Chest X-Ray 09/18/18 13:47 IMPRESSION: 1. No significant interval changes since the prior examination dated 05/21/2015. No acute findings. Head CT 09/18/18 13:47 IMPRESSION: Fluffy increased attenuation within the left basal ganglia, may represent asymmetric basal ganglia mineralization versus small parenchymal hemorrhage with the former favored. No additional evidence of acute intracranial process. EVIDENCE OF ACUTE STROKE: NO. Case discussed with Dr. Joseph at the time of interpretation. Head MRI 09/18/18 18:04 IMPRESSION: NORMAL MRI OF THE BRAIN WITHOUT INTRAVENOUS GADOLINIUM CONTRAST. EVIDENCE OF ACUTE STROKE: NO. Qualifiers - * PATIENT BEING DISCHARGED WITH ANY OF THE FOLLOWING DIAGNOSIS: No VTE patient discharged on overlapping Therapy?: Yes
[2018-09-23] MEDS ORDERED: METHOTREXATE SODIUM 2.5 MG TABLET PO SCH (10:00)
[2018-09-25] MEDS ORDERED: METHOTREXATE SODIUM 2.5 MG TABLET PO SCH (10:00)
== END 2018-09-19 14:49 | disposition home or self-care (01) ==
LOC: ER 13:15 → EH 18:31 → 4S 19:32
PROVIDERS: ADMIT Family Medicine; ATTEND Family Medicine
DX: H53.2 Diplopia (principal); M32.9 Systemic lupus erythematosus, unspecified; R42 Dizziness and giddiness; Z86.711 Personal history of pulmonary embolism; I44.7 Left bundle-branch block, unspecified; I50.9 Heart failure, unspecified; F32.9 Major depressive disorder, single episode, unspecified; F41.9 Anxiety disorder, unspecified; H93.13 Tinnitus, bilateral; R26.2 Difficulty in walking, not elsewhere classified; R11.2 Nausea with vomiting, unspecified; R20.0 Anesthesia of skin; R61 Generalized hyperhidrosis; R20.2 Paresthesia of skin; R51 Headache; Z86.718 Personal history of other venous thrombosis and embolism; Z79.02 Long term (current) use of antithrombotics/antiplatelets; Z79.899 Other long term (current) drug therapy; Z90.49 Acquired absence of other specified parts of digestive tract; Z87.891 Personal history of nicotine dependence; Z83.3 Family history of diabetes mellitus
CPT/HCPCS: 93005; 99285; 36415 ×2; 82553 ×2; 82962; 82550 ×2; 83735; 84443; 85025 ×2; 85610; 85730; 80053 ×2; 84484 ×2; 80061; 70551; 71045; 70450; 93010; 97116; 97163; 97165; G0378 ×3; A9270 ×8; J3490; G8978; G8979; G8987; G8988; G8989